=== PATIENT | female | born 1990 | race Hispanic/Latino ===

== ENCOUNTER 2018-12-01 16:40 | Emergency (ER) | payer SELFPAY ==
[2018-12-01 16:42] VITALS: BP 99/66; PULSE 73; RESP 16; TEMP 36.8; O2SAT 100; BMI 24.9
--- NOTE | 2018-12-01 17:15 | CT_ITS ---
STUDY: CT BRAIN WITHOUT CONTRAST REASON FOR EXAM: Female, 28 years old. Headache RADIATION DOSAGE (If Supplied By Facility): CTDIvol = ( 44.99 ) mGy, DLP = ( 796.11 ) mGycm TECHNIQUE: Transaxial CT imaging of the brain was performed without administration of intravenous contrast material. Individualized dose optimization techniques were used for this CT. COMPARISON: None. FINDINGS: There is no acute bleed or infarct. There are normal white matter tracts. The ventricles are normal in configuration. There is no hydrocephalus. There is marked mucosal hypertrophy in the left maxillary sinus and left ethmoid sinus and mild mucosal hypertrophy in the left sphenoid and left frontal sinus. The visualized right-sided paranasal sinuses are clear. The mastoid air cells are well aerated. There is no skull fracture. CT/Brain/Head without Contrast IMPRESSION: No acute intracranial abnormality. Left-sided sinusitis. Electronically Signed: Oswaldo Zepeda, at 18:07 EDT Tel , Service support ,
--- NOTE | 2018-12-01 17:16 | ED.VISSUMM ---
- ER Visit Summary Date of Service: 12/01/18 Chief Complaint: Headache History of Present Illness: The patient is a 28 F presenting with headache. Her boyfriend is at bedside and is translating. She states it started 3 days ago. Headache was gradual in onset. She has history of migraine headaches. She has tried Tylenol and ibuprofen at home. She denies trauma. Denies fever. Denies other complaints. Physical Examination: Vitals are stable. Patient is afebrile. Alert no acute distress. HEENT exam left maxillary sinus tenderness Neck is supple. No meningismus Lungs are clear and equal bilaterally. Heart is regular rate and rhythm. Extremities are unremarkable. Skin is warm and dry. No rash No focal neurologic deficit. Remainder of exam is unremarkable. Emergency Department Course and Treatment: Patient was given Reglan, Benadryl IV. CT head shows no acute intracranial abnormality. Left-sided sinusitis. On reevaluation, patient is resting comfortably and is feeling improved. She is given a prescription for Augmentin. Advised to follow-up with Dr. Joshi division order technician for no doc. Advised to return to ED for worsening complaints. Disposition: Discharge home Impression: Sinusitis This note was generated with [employer] dictation software. It may contain incorrect words, spelling, and punctuation that were not noted in review of the chart prior to signing ED Disposition - Plan for ED Patient: Referrals: NOT,DEFINED [NON-STAFF] -
[2018-12-01] MEDS: DiphenhydrAMINE 50 MG/ML Syringe 25 MG IV (17:42)
[2018-12-01] MEDS: Metoclopramide 10 MG/2 ML Vial 5 MG IV (17:43)
--- NOTE | 2018-12-01 18:50 | ED.DEP ---
ED Disposition - Plan for ED Patient: Instructions: Sinus Headache Prescriptions: Amox/Clavulanate Tablet [Augmentin Tablet] 875 mg PO Q12H #14 tablet Referrals: Julio Joshi DO [NON CLINICAL AFFILIATE] -
[2018-12-01] MEDS: Amox/Clavulanate 875 MG Tablet PO (19:22)
[2018-12-01 19:25] VITALS: BP 103/76; PULSE 81; RESP 14; O2SAT 99
== END 2018-12-01 19:25 | disposition home or self-care (01) ==
LOC: ED 17:28
PROVIDERS: Emergency Provider Emergency Medicine
DX: J32.9 Chronic sinusitis, unspecified (principal)
CPT/HCPCS: 70450; 96374; 96375; 99284; A4216